=== PATIENT | male | born 1935 | race African-American/Black ===

== ENCOUNTER 2021-06-20 06:23 | Emergency (ER) | payer MEDICARE, MEDICAID ==
[~2021-06-20] VITALS: Ht 162.6 cm; Wt 50.0 kg
[~2021-06-20 06:23] MED LIST: AMLODIPINE2.5 MG PO; BACTRIM DS1 TAB PO; CIPROFLOXACN500 MG PO; CLARITIN10 MG PO; DILAUDID 2MG2 MG/TA1 PO; GABAPENTIN300 MG PO; MELOXICAM7.5 MG PO; NAPROSYN500 MG PO; NAPROXEN500 MG PO; TAMSULOSIN0.4 MG PO; TESSALON PER100 MG PO; ZPAK OR
[2021-06-20 07:33] LABS: HEMOGLOBIN 10.4 g/dl (14.0-18.0); IMMATURE GRANULOCYTES 0.2 % (0.0-5.0); MEAN CELL VOLUME 82.7 fL CALC (80.0-100.0); MEAN CORPUSCULAR HGB 26.9 pG CALC (26.0-32.0); MEAN CORPUSCULAR HGB CONC 32.5 g/dL CAL (32.0-36.0); NEUT# 9.24 thou/uL (1.82-7.42); RED BLOOD COUNT 3.87 mill/uL (4.70-6.10); RED CELL DISTRI WIDTH 15.1 % (11.5-15.5)
[2021-06-20 07:41] LABS: URINE BILIRUBIN - DIPSTICK NEGATIVE (NEGATIVE); URINE BLOOD DIPSTICK MODERATE (NEGATIVE); URINE COLOR YELLOW; URINE GLUCOSE - DIPSTICK NEGATIVE (NEGATIVE); URINE KETONE 15 mg/dL (NEGATIVE); URINE PROTEIN - DIPSTICK 30 mg/dL (NEG-TRACE)
[2021-06-20 07:47] LABS: URINE NITRITE - DIPSTICK NEGATIVE (Negative)
[2021-06-20 07:48] LABS: URINE LEUK ESTERASE LARGE (NEGATIVE); URINE WBC 50-100 WBC/hpf (0-5)
[2021-06-20 07:49] LABS: URINE BACTERIA MANY hpf; URINE EPITHELIAL CELLS FEW EPI/hpf (0-FEW)
[2021-06-20 07:56] LABS: ALBUMIN 3.9 g/dL (3.2-5.0); ALKALINE PHOSPHATASE 85 u/l (38-126); ANION GAP 13 (6-22 (CALC)); BILIRUBIN, TOTAL 1.3 mg/dL (0.0-1.4); BUN 14 mg/dL (8-23); BUN/CREATININE RATIO 12 (12-20 (CALC)); CARBON DIOXIDE 24 mmol/l (22-30); CHLORIDE 110 mmol/l (95-108); CREATININE 1.2 mg/dL (0.7-1.3); GFR 57 ML/MIN (>=60 (CALC)); GFR FOR AFR.AMER. > 60 ML/MIN (>=60 (CALC)); POTASSIUM 3.7 mmol/l (3.5-5.1); SGOT/AST 22 u/l (19-48); SODIUM 144 mmol/l (137-146); TOTAL PROTEIN 7.2 g/dL (6.3-8.2)
[2021-06-20] MEDS ORDERED: BACTRIM DS1 TAB PO (08:41)
[2021-06-20 08:59] VITALS: BP 131/69
== END 2021-06-20 08:59 | disposition home or self-care (01) ==
LOC: ED 06:23
PROVIDERS: Emergency Medicine
DX: N39.0 Urinary tract infection, site not specified (principal); I10 Essential (primary) hypertension; J44.9 Chronic obstructive pulmonary disease, unspecified; F17.200 Nicotine dependence, unspecified, uncomplicated; B96.89 Other specified bacterial agents as the cause of diseases classified elsewhere

== ENCOUNTER 2022-08-11 07:31 | Day surgery (SDC) | payer MEDICARE, MEDICAID ==
[~2022-08-11] VITALS: Ht 162.6 cm; Wt 44.9 kg
[~2022-08-11 07:31] MED LIST changes: +ADVAIR DISK1 INH; +GABAPENTIN100 MG PO; -GABAPENTIN300 MG PO
[2022-08-11] MEDS ORDERED: MONTELUKAST SOD10 MG PO (07:50)
[2022-08-11] MEDS ORDERED: FLONASE SE27.5 MCG/S (07:52)
[2022-08-11] MEDS ORDERED: MUCINEX600 MG PO (07:53)
[2022-08-11] MEDS ORDERED: XALATAN 0.005%2.5 ML OU (07:54)
[2022-08-11] MEDS ORDERED: BETIMOL0.5 % OU (07:56)
[2022-08-11] MEDS ORDERED: ALBUTEROL SUL0.083 % IN (07:58)
[2022-08-11] MEDS ORDERED: IMODIUM2 MG PO (07:58)
[2022-08-11 11:01] VITALS: BP 109/59
== END 2022-08-11 10:26 | disposition home or self-care (01) ==
LOC: ORM 07:31
PROVIDERS: ATTEND Surgery
PROC: 0JH63WZ Insertion of Totally Implantable Vascular Access Device into Chest Subcutaneous Tissue and Fascia, Percutaneous Approach (ICD-10-PCS; principal; 2022-08-11)
PROC: 02HV33Z Insertion of Infusion Device into Superior Vena Cava, Percutaneous Approach (ICD-10-PCS; 2022-08-11)
PROC: B518ZZA Fluoroscopy of Superior Vena Cava, Guidance (ICD-10-PCS; 2022-08-11)
DX: C94 Other leukemias of specified cell type (principal); I10 Essential (primary) hypertension; J44.9 Chronic obstructive pulmonary disease, unspecified; G62.9 Polyneuropathy, unspecified
CPT/HCPCS: J0690

== ENCOUNTER 2022-10-07 22:01 | Emergency (ER) | payer MEDICARE, MEDICAID ==
[~2022-10-07] VITALS: Ht 162.6 cm; Wt 56.0 kg
[~2022-10-07 22:01] MED LIST changes: +ALBUTEROL SUL0.083 % IN; +BETIMOL0.5 % OU; +FLONASE SE27.5 MCG/S; +IMODIUM2 MG PO; +MONTELUKAST SOD10 MG PO; +MUCINEX600 MG PO; +XALATAN 0.005%2.5 ML OU
[2022-10-07 23:02] VITALS: BP 137/69
[2022-10-07 23:15] VITALS: BP 118/64
[2022-10-07 23:30] VITALS: BP 102/60
[2022-10-07 23:45] VITALS: BP 113/64
[2022-10-08] VITALS (8 sets, daily range): BP systolic 114–130; BP diastolic 62–77
[2022-10-08 00:26] LABS: BASO% 1.2 % (0-3); EOS% 2.8 % (0-8); HEMATOCRIT 31.5 % (39.0-50.0); IMMATURE GRANULOCYTES 0.7 % (0.0-5.0); LYMPH% 26.2 % (15-41); MEAN CORPUSCULAR HGB 28.1 pG CALC (26.0-32.0); MEAN CORPUSCULAR HGB CONC 31.7 g/dL CAL (32.0-36.0); MONO% 11.1 % (2-13); NEUT# 2.5 thou/uL (1.82-7.42); RED BLOOD COUNT 3.56 mill/uL (4.70-6.10); RED CELL DISTRI WIDTH 20.1 % (11.5-15.5)
[2022-10-08 00:29] LABS: MEAN CELL VOLUME 88.5 fL CALC (80.0-100.0)
[2022-10-08 00:46] LABS: ALKALINE PHOSPHATASE 65 u/l (38-126); ANION GAP 13 (6-22 (CALC)); BILIRUBIN, TOTAL 0.8 mg/dL (0.2-1.3); BUN 18 mg/dL (8-23); BUN/CREATININE RATIO 20 (12-20 (CALC)); CARBON DIOXIDE 24 mmol/l (22-30); CHLORIDE 104 mmol/l (95-108); CREATININE 0.9 mg/dL (0.7-1.3); GFR FOR AFR.AMER. > 60 ML/MIN (>=60 (CALC)); GFR OTHER RACES > 60 ML/MIN (>=60 (CALC)); POTASSIUM 3.9 mmol/l (3.5-5.1); SGOT/AST 23 u/l (19-48); SODIUM 137 mmol/l (137-146); TOTAL PROTEIN 6.4 g/dL (6.3-8.2)
[2022-10-08] MEDS ORDERED: ZITHROMAX250 MG PO (04:02)
== END 2022-10-08 04:21 | disposition home or self-care (01) ==
LOC: ED 22:01
PROVIDERS: Emergency Medicine
DX: J18.9 Pneumonia, unspecified organism (principal); Z45.2 Encounter for adjustment and management of vascular access device; I10 Essential (primary) hypertension; Z95.828 Presence of other vascular implants and grafts
CPT/HCPCS: Q9967

== ENCOUNTER 2023-02-13 01:20 | Emergency (ER) | payer MEDICARE, MEDICAID ==
[~2023-02-13] VITALS: Ht 162.6 cm; Wt 49.0 kg
[2023-02-13] VITALS (18 sets, daily range): BP systolic 100–164; BP diastolic 45–93
[~2023-02-13 01:20] MED LIST changes: +ZITHROMAX250 MG PO
[2023-02-13] MEDS ORDERED: OMNI-PAC300 MG PO (05:21)
[2023-02-14] MEDS ORDERED: MEDDOSEPAK PO (15:16)
== END 2023-02-13 05:53 | disposition home or self-care (01) ==
LOC: ED 01:20
PROC: 0JQ13ZZ Repair Face Subcutaneous Tissue and Fascia, Percutaneous Approach (ICD-10-PCS; principal; 2023-02-13)
DX: S01.81XA Laceration without foreign body of other part of head, initial encounter (principal); I10 Essential (primary) hypertension; J44.9 Chronic obstructive pulmonary disease, unspecified; C34.91 Malignant neoplasm of unspecified part of right bronchus or lung; W06.XXXA Fall from bed, initial encounter; Y92.003 Bedroom of unspecified non-institutional (private) residence as the place of occurrence of the external cause; Z87.891 Personal history of nicotine dependence

== ENCOUNTER 2023-02-13 16:41 | Observation (INO) | payer MEDICARE, MEDICAID ==
[2023-02-13] VITALS (24 sets, daily range): BP systolic 109–149; BP diastolic 65–88
[~2023-02-13] VITALS: Ht 160 cm; Wt 50.0 kg
[~2023-02-13 16:41] MED LIST changes: +OMNI-PAC300 MG PO
[2023-02-13 18:46] LABS: BASO% 0.2 % (0-3); EOS% 0.8 % (0-8); HEMATOCRIT 39.7 % (39.0-50.0); HEMOGLOBIN 13.1 g/dl (14.0-18.0); IMMATURE GRANULOCYTES 0.8 % (0.0-5.0); LYMPH% 8.3 % (15-41); MEAN CORPUSCULAR HGB 27.8 pG CALC (26.0-32.0); MONO% 6.2 % (2-13); NEUT# 4.02 thou/uL (1.82-7.42); NEUT% 83.7 % (42-76); RED BLOOD COUNT 4.71 mill/uL (4.70-6.10); RED CELL DISTRI WIDTH 14.8 % (11.5-15.5)
[2023-02-13 18:47] LABS: MEAN CELL VOLUME 84.3 fL CALC (80.0-100.0)
[2023-02-13 18:59] LABS: ALBUMIN 3.7 g/dL (3.2-5.0); ALKALINE PHOSPHATASE 74 u/l (38-126); ANION GAP 9 (6-22 (CALC)); BUN 14 mg/dL (8-23); BUN/CREATININE RATIO 15 (12-20 (CALC)); CARBON DIOXIDE 24 mmol/l (22-30); CHLORIDE 110 mmol/l (95-108); GFR FOR AFR.AMER. > 60 ML/MIN (>=60 (CALC)); GFR OTHER RACES > 60 ML/MIN (>=60 (CALC)); POTASSIUM 3.5 mmol/l (3.5-5.1); SGOT/AST 34 u/l (19-48); SODIUM 140 mmol/l (137-146); TOTAL PROTEIN 6.7 g/dL (6.3-8.2)
[2023-02-13 19:11] LABS: BILIRUBIN, TOTAL 1.4 mg/dL (0.2-1.3)
[2023-02-14 01:39] VITALS: BP 136/76
[2023-02-14 06:56] VITALS: BP 111/60
[2023-02-14 08:00] VITALS: BP 111/60
[2023-02-14 10:47] VITALS: BP 145/81
[2023-02-14 11:55] VITALS: BP 145/81
[2023-02-14 14:25] VITALS: BP 129/69
[2023-02-14] MEDS ORDERED: MEDDOSEPAK PO (15:16)
== END 2023-02-14 15:51 | disposition home health service (06) ==
LOC: ED 16:41 → ED-I 17:09 → MS2 19:29 → ED 19:29 → MS2 19:29
PROVIDERS: Family Medicine; ADMIT Student in an Organized Health Care Education/Training Program; ATTEND Student in an Organized Health Care Education/Training Program
DX: J44.1 Chronic obstructive pulmonary disease with (acute) exacerbation (principal); R07.81 Pleurodynia; I10 Essential (primary) hypertension; C34.91 Malignant neoplasm of unspecified part of right bronchus or lung; S01.81XD Laceration without foreign body of other part of head, subsequent encounter; W06.XXXD Fall from bed, subsequent encounter; Z87.891 Personal history of nicotine dependence; Z79.899 Other long term (current) drug therapy; Z20.822 Contact with and (suspected) exposure to COVID-19

== ENCOUNTER 2023-07-14 15:28 | Inpatient (IN) | payer MEDICARE, MEDICAID ==
[~2023-07-14] VITALS: Ht 157.5 cm; Wt 48.0 kg
[2023-07-14] VITALS (15 sets, daily range): BP systolic 115–163; BP diastolic 66–107
[~2023-07-14 15:28] MED LIST changes: +AMOXICILLIN500 MG PO; +LEVAQUIN750 M1 PO; +MEDDOSEPAK PO; +NEURONTIN300 MG PO; +PROTONIX40 M2 PO
[2023-07-14 16:00] LABS: BASO% 0.1 % (0-3); EOS% 0.5 % (0-8); HEMOGLOBIN 11.4 g/dl (14.0-18.0); IMMATURE GRANULOCYTES 1.6 % (0.0-5.0); LYMPH% 10.9 % (15-41); MEAN CELL VOLUME 84.1 fL CALC (80.0-100.0); MEAN CORPUSCULAR HGB 26.6 pG CALC (26.0-32.0); MEAN CORPUSCULAR HGB CONC 31.7 g/dL CAL (32.0-36.0); MONO% 3.2 % (2-13); NEUT# 6.2 thou/uL (1.82-7.42); NEUT% 83.7 % (42-76); RED BLOOD COUNT 4.28 mill/uL (4.70-6.10); RED CELL DISTRI WIDTH 16.8 % (11.5-15.5)
[2023-07-14 16:12] LABS: ALKALINE PHOSPHATASE 81 u/l (38-126); BUN 18 mg/dL (8-23); BUN/CREATININE RATIO 18 (12-20 (CALC)); CARBON DIOXIDE 23 mmol/l (22-30); CHLORIDE 106 mmol/l (95-108); GFR FOR AFR.AMER. > 60 ML/MIN (>=60 (CALC)); GFR OTHER RACES > 60 ML/MIN (>=60 (CALC)); LIPASE 91 u/l (23-300); SGOT/AST 40 u/l (19-48); SODIUM 141 mmol/l (137-146)
[2023-07-14 16:18] LABS: ANION GAP 15 (6-22 (CALC)); BILIRUBIN, TOTAL 2.1 mg/dL (0.2-1.3); POTASSIUM 3.4 mmol/l (3.5-5.1); TOTAL PROTEIN 7.1 g/dL (6.3-8.2)
[2023-07-14 17:53] LABS: URINE BILIRUBIN - DIPSTICK Negative (NEGATIVE); URINE BLOOD DIPSTICK Trace-intact (NEGATIVE); URINE COLOR Yellow; URINE GLUCOSE - DIPSTICK Negative (NEGATIVE); URINE KETONE Negative (NEGATIVE); URINE LEUK ESTERASE Large (NEGATIVE); URINE NITRITE - DIPSTICK Negative (Negative); URINE PROTEIN - DIPSTICK 30 mg/dL (NEG-TRACE)
[2023-07-14 17:58] LABS: URINE RBC 0-2 RBC/hpf (0-5); URINE SQUAMOUS EPITHELIAL CELL FEW EPI/hpf (0-FEW)
[2023-07-14] MEDS ORDERED: PROTONIX40 M2 PO (20:08)
[2023-07-14] MEDS ORDERED: PROSCAR5 MG PO (20:10)
[2023-07-14] MEDS ORDERED: AMLODIPINE BES2.5 MG PO (20:10)
[2023-07-14] MEDS ORDERED: MONTELUKAST SOD10 MG PO (20:11)
[2023-07-14] MEDS ORDERED: SINGULAIR10 MG PO (20:13)
[2023-07-14] MEDS ORDERED: XALATAN 0.005%2.5 ML OP (20:15)
[2023-07-14] MEDS ORDERED: ALBUTEROL SUL0.083 % IN (20:18)
[2023-07-14] MEDS ORDERED: VITAMIN B-1100 M1 PO (20:20)
[2023-07-14] MEDS ORDERED: MUCINEX600 MG PO (20:21)
[2023-07-15] VITALS (7 sets, daily range): BP systolic 115–146; BP diastolic 68–77
[2023-07-15 06:00] LABS: BASO% 0.2 % (0-3); EOS% 1.7 % (0-8); IMMATURE GRANULOCYTES 1.3 % (0.0-5.0); LYMPH% 13.8 % (15-41); MEAN CELL VOLUME 82.7 fL CALC (80.0-100.0); MEAN CORPUSCULAR HGB 26.7 pG CALC (26.0-32.0); MEAN CORPUSCULAR HGB CONC 32.4 g/dL CAL (32.0-36.0); MONO% 5.8 % (2-13); NEUT# 3.58 thou/uL (1.82-7.42); NEUT% 77.2 % (42-76); RED BLOOD COUNT 3.29 mill/uL (4.70-6.10); RED CELL DISTRI WIDTH 16.6 % (11.5-15.5)
[2023-07-15 06:25] LABS: ANION GAP 7 (6-22 (CALC)); BUN 11 mg/dL (8-23); BUN/CREATININE RATIO 14 (12-20 (CALC)); CARBON DIOXIDE 26 mmol/l (22-30); CHLORIDE 111 mmol/l (95-108); CREATININE 0.7 mg/dL (0.7-1.3); GFR FOR AFR.AMER. > 60 ML/MIN (>=60 (CALC)); GFR OTHER RACES > 60 ML/MIN (>=60 (CALC)); POTASSIUM 3.4 mmol/l (3.5-5.1); SODIUM 141 mmol/l (137-146)
[2023-07-15 06:37] LABS: HEMATOCRIT 27.2 % (39.0-50.0); HEMOGLOBIN 8.8 g/dl (14.0-18.0)
[2023-07-15 07:06] LABS: MAGNESIUM 1.6 mg/dL (1.6-2.3)
[2023-07-15] MEDS ORDERED: TRELEGY ELLIPTA1 AER IN (11:25)
[2023-07-15 13:32] LABS: BASO% 0.3 % (0-3); EOS% 1.3 % (0-8); HEMATOCRIT 30.2 % (39.0-50.0); HEMOGLOBIN 9.6 g/dl (14.0-18.0); MEAN CELL VOLUME 83.7 fL CALC (80.0-100.0); MEAN CORPUSCULAR HGB 26.6 pG CALC (26.0-32.0); MEAN CORPUSCULAR HGB CONC 31.8 g/dL CAL (32.0-36.0); MONO% 4.8 % (2-13); NEUT# 4.67 thou/uL (1.82-7.42); NEUT% 77.6 % (42-76); RED BLOOD COUNT 3.61 mill/uL (4.70-6.10); RED CELL DISTRI WIDTH 16.4 % (11.5-15.5)
[2023-07-15 15:39] LABS: ANION GAP 9 (6-22 (CALC)); BUN 9 mg/dL (8-23); BUN/CREATININE RATIO 14 (12-20 (CALC)); CARBON DIOXIDE 23 mmol/l (22-30); CHLORIDE 112 mmol/l (95-108); CREATININE 0.7 mg/dL (0.7-1.3); GFR FOR AFR.AMER. > 60 ML/MIN (>=60 (CALC)); GFR OTHER RACES > 60 ML/MIN (>=60 (CALC)); POTASSIUM 3.9 mmol/l (3.5-5.1); SODIUM 140 mmol/l (137-146)
[2023-07-16 03:34] VITALS: BP 131/77
[2023-07-16 05:13] LABS: BASO% 0.2 % (0-3); HEMATOCRIT 24.6 % (39.0-50.0); IMMATURE GRANULOCYTES 0.5 % (0.0-5.0); LYMPH% 6.5 % (15-41); MEAN CELL VOLUME 83.1 fL CALC (80.0-100.0); MEAN CORPUSCULAR HGB CONC 32.5 g/dL CAL (32.0-36.0); NEUT# 3.65 thou/uL (1.82-7.42); NEUT% 90.8 % (42-76); RED BLOOD COUNT 2.96 mill/uL (4.70-6.10); RED CELL DISTRI WIDTH 16.2 % (11.5-15.5)
[2023-07-16 05:38] LABS: ANION GAP 9 (6-22 (CALC)); BUN 9 mg/dL (8-23); BUN/CREATININE RATIO 13 (12-20 (CALC)); CARBON DIOXIDE 22 mmol/l (22-30); CHLORIDE 114 mmol/l (95-108); CREATININE 0.7 mg/dL (0.7-1.3); GFR FOR AFR.AMER. > 60 ML/MIN (>=60 (CALC)); GFR OTHER RACES > 60 ML/MIN (>=60 (CALC)); SODIUM 140 mmol/l (137-146)
[2023-07-16 06:59] VITALS: BP 136/72
[2023-07-16 10:29] VITALS: BP 142/72
[2023-07-16 12:41] LABS: BASO% 0.2 % (0-3); HEMATOCRIT 25.1 % (39.0-50.0); HEMOGLOBIN 8.1 g/dl (14.0-18.0); IMMATURE GRANULOCYTES 0.5 % (0.0-5.0); LYMPH% 4.9 % (15-41); MEAN CELL VOLUME 83.7 fL CALC (80.0-100.0); MEAN CORPUSCULAR HGB CONC 32.3 g/dL CAL (32.0-36.0); MONO% 2.2 % (2-13); NEUT# 5.45 thou/uL (1.82-7.42); NEUT% 92.2 % (42-76); RED CELL DISTRI WIDTH 16.1 % (11.5-15.5)
[2023-07-16 12:58] LABS: ALKALINE PHOSPHATASE 69 u/l (38-126); ANION GAP 10 (6-22 (CALC)); BUN 9 mg/dL (8-23); BUN/CREATININE RATIO 14 (12-20 (CALC)); CARBON DIOXIDE 18 mmol/l (22-30); CHLORIDE 115 mmol/l (95-108); CREATININE 0.7 mg/dL (0.7-1.3); GFR FOR AFR.AMER. > 60 ML/MIN (>=60 (CALC)); GFR OTHER RACES > 60 ML/MIN (>=60 (CALC)); POTASSIUM 4.2 mmol/l (3.5-5.1); SGOT/AST 31 u/l (19-48); SODIUM 139 mmol/l (137-146)
[2023-07-16 12:59] LABS: ALBUMIN 2.7 g/dL (3.2-5.0); BILIRUBIN, TOTAL 0.7 mg/dL (0.2-1.3); MAGNESIUM 2.1 mg/dL (1.6-2.3)
[2023-07-16 14:58] VITALS: BP 154/77
[2023-07-16 19:29] VITALS: BP 162/88
[2023-07-16 22:53] VITALS: BP 144/76
[2023-07-17] VITALS (7 sets, daily range): BP systolic 150–183; BP diastolic 82–96
[2023-07-17 05:08] LABS: HEMATOCRIT 23.2 % (39.0-50.0); HEMOGLOBIN 7.5 g/dl (14.0-18.0); IMMATURE GRANULOCYTES 0.8 % (0.0-5.0); LYMPH% 4.5 % (15-41); MEAN CORPUSCULAR HGB 26.5 pG CALC (26.0-32.0); MEAN CORPUSCULAR HGB CONC 32.3 g/dL CAL (32.0-36.0); MONO% 2.2 % (2-13); NEUT% 92.5 % (42-76); RED BLOOD COUNT 2.83 mill/uL (4.70-6.10); RED CELL DISTRI WIDTH 16.1 % (11.5-15.5)
[2023-07-17 05:29] LABS: ANION GAP 9 (6-22 (CALC)); BUN 8 mg/dL (8-23); BUN/CREATININE RATIO 11 (12-20 (CALC)); CARBON DIOXIDE 20 mmol/l (22-30); CHLORIDE 116 mmol/l (95-108); CREATININE 0.7 mg/dL (0.7-1.3); GFR FOR AFR.AMER. > 60 ML/MIN (>=60 (CALC)); GFR OTHER RACES > 60 ML/MIN (>=60 (CALC)); SODIUM 141 mmol/l (137-146)
[2023-07-17 14:17] LABS: HEMATOCRIT 27.5 % (39.0-50.0); HEMOGLOBIN 8.5 g/dl (14.0-18.0); IMMATURE GRANULOCYTES 1.4 % (0.0-5.0); LYMPH% 3.8 % (15-41); MEAN CELL VOLUME 84.6 fL CALC (80.0-100.0); MEAN CORPUSCULAR HGB 26.2 pG CALC (26.0-32.0); MEAN CORPUSCULAR HGB CONC 30.9 g/dL CAL (32.0-36.0); MONO% 2.5 % (2-13); NEUT# 10.09 thou/uL (1.82-7.42); NEUT% 92.3 % (42-76); RED BLOOD COUNT 3.25 mill/uL (4.70-6.10); RED CELL DISTRI WIDTH 16.1 % (11.5-15.5)
[2023-07-18 00:06] VITALS: BP 167/86
[2023-07-18 04:13] VITALS: BP 167/86
[2023-07-18 05:49] LABS: BASO% 0.1 % (0-3); HEMATOCRIT 25.9 % (39.0-50.0); HEMOGLOBIN 8.4 g/dl (14.0-18.0); IMMATURE GRANULOCYTES 1.1 % (0.0-5.0); LYMPH% 4.8 % (15-41); MEAN CELL VOLUME 82.2 fL CALC (80.0-100.0); MEAN CORPUSCULAR HGB 26.7 pG CALC (26.0-32.0); MEAN CORPUSCULAR HGB CONC 32.4 g/dL CAL (32.0-36.0); MONO% 1.9 % (2-13); NEUT# 9.92 thou/uL (1.82-7.42); NEUT% 92.1 % (42-76); RED BLOOD COUNT 3.15 mill/uL (4.70-6.10); RED CELL DISTRI WIDTH 16.3 % (11.5-15.5)
[2023-07-18 06:06] LABS: ANION GAP 7 (6-22 (CALC)); BUN 11 mg/dL (8-23); BUN/CREATININE RATIO 14 (12-20 (CALC)); CARBON DIOXIDE 24 mmol/l (22-30); CHLORIDE 115 mmol/l (95-108); CREATININE 0.8 mg/dL (0.7-1.3); GFR FOR AFR.AMER. > 60 ML/MIN (>=60 (CALC)); GFR OTHER RACES > 60 ML/MIN (>=60 (CALC)); POTASSIUM 4.1 mmol/l (3.5-5.1); SODIUM 141 mmol/l (137-146)
[2023-07-18 06:20] VITALS: BP 166/84
[2023-07-18 10:51] VITALS: BP 152/75
[2023-07-18] MEDS ORDERED: ZITHROMAX250 MG PO (12:35)
[2023-07-18] MEDS ORDERED: OMNICEF300 MG PO (12:35)
[2023-07-18] MEDS ORDERED: PREDNISONE20 MG PO (12:36)
== END 2023-07-18 14:16 | DRG 871 ==
LOC: ED 15:28 → ED-I 18:50 → ED 19:12 → MS2 19:13
PROVIDERS: Family Medicine; ADMIT Student in an Organized Health Care Education/Training Program; ATTEND Student in an Organized Health Care Education/Training Program
DX: A41.9 Sepsis, unspecified organism (principal); J18.9 Pneumonia, unspecified organism; J96.21 Acute and chronic respiratory failure with hypoxia; N39.0 Urinary tract infection, site not specified; J44.0 Chronic obstructive pulmonary disease with (acute) lower respiratory infection; D62 Acute posthemorrhagic anemia; J44.1 Chronic obstructive pulmonary disease with (acute) exacerbation; E87.20 Acidosis, unspecified; R65.20 Severe sepsis without septic shock; I36.1 Nonrheumatic tricuspid (valve) insufficiency; B96.1 Klebsiella pneumoniae [K. pneumoniae] as the cause of diseases classified elsewhere; I10 Essential (primary) hypertension; K59.00 Constipation, unspecified; K21.9 Gastro-esophageal reflux disease without esophagitis; N40.0 Benign prostatic hyperplasia without lower urinary tract symptoms; Z99.81 Dependence on supplemental oxygen; Z85.118 Personal history of other malignant neoplasm of bronchus and lung; Z87.891 Personal history of nicotine dependence; Z87.19 Personal history of other diseases of the digestive system; Z20.822 Contact with and (suspected) exposure to COVID-19
CPT/HCPCS: J1650; J3475; S0164